=== PATIENT | male | born 1990 | race American Indian/Alaskan Native ===

== ENCOUNTER 2018-04-01 19:38 | Emergency (ER) | payer SELFPAY ==
[2018-04-01 20:30] LABS: Basophils % (Auto) 0.5 % (0.0-1.8); Eosinophils % (Auto) 0.7 % (0.0-4.3); Hematocrit 53.4 % (35.5-45.6); Hemoglobin 18.7 gm/dl (11.8-15.2); Lymphocytes # (Auto) 1.8 K/mm3 (1.2-5.4); Lymphocytes % (Auto) 32.2 % (13.4-35.0); Mean Corpuscular HGB Conc 35 % (32-34); Mean Corpuscular Hemoglobin 29 pg (28-32); Mean Corpuscular Volume 82 fl (84-94); Monocytes # (Auto) 0.7 K/mm3 (0.0-0.8); Monocytes % (Auto) 12.9 % (0.0-7.3); Platelet Count 215 K/mm3 (140-440); Red Blood Count 6.52 M/mm3 (3.65-5.03); Red Cell Distribution Width 12.7 % (13.2-15.2)
[2018-04-01 20:42] LABS: BUN/Creatinine Ratio 10; Blood Urea Nitrogen 13 mg/dL (9-20); Calcium 10.1 mg/dL (8.4-10.2); Hemolysis Index 8
[2018-04-02] MEDS ORDERED: NACL 0.9% 1000 ML 1,000 ML IV ONE ×2 (03:05→06:04)
[2018-04-02] MEDS ORDERED: ZOFRAN IV ONE (03:05)
--- NOTE | 2018-04-02 03:08 | Emergency Department Report ---
HPI - General Chief Complaint: Chest Pain Time Seen by Provider: 04/02/18 03:02 - HPI HPI: 27-year-old [place] male presents to the emergency department with complaint of a 4 day history of nausea and vomiting that has caused some abdominal discomfort and some occasional chest pain. The chest mostly hurts when he burps or has been vomiting, but currently at rest he has no chest pain. He denies any past medical history. He has not taken anything for her symptoms or presentation. No recent travel or sick contacts at home. He denies any shortness of breath, fever, back pain. ED Past Medical Hx - Past Medical History Previous Medical History?: No - Surgical History Past Surgical History?: No - Social History Smoking Status: Current Every Day Smoker Substance Use Type: None - Medications Home Medications: Home Medications Medication Instructions Recorded Confirmed Last Taken Type Ondansetron [Zofran Odt] 4 mg PO Q8H PRN #10 tab.rapdis 04/02/18 Unknown Rx ED Review of Systems ROS: Stated complaint: CHEST PAIN,VOMITING Other details as noted in HPI Comment: All other systems reviewed and negative Constitutional: denies: chills, fever Eyes: denies: eye pain, eye discharge, vision change ENT: denies: ear pain, throat pain Respiratory: denies: cough, shortness of breath, wheezing Cardiovascular: chest pain. denies: palpitations Gastrointestinal: abdominal pain, nausea, vomiting Genitourinary: denies: urgency, dysuria Musculoskeletal: denies: back pain, joint swelling, arthralgia Skin: denies: rash, lesions Neurological: denies: headache, weakness, paresthesias Physical Exam - Physical Exam Vital Signs: Vital Signs 04/01/18 04/01/18 20:01 20:15 Temperature 98.7 F 98.7 F Pulse Rate 116 H 113 H Respiratory 18 17 Rate Blood Pressure 131/92 131/92 O2 Sat by Pulse 100 100 Oximetry Physical Exam: GENERAL: The patient is well-developed well-nourished. HENT: Normocephalic. Atraumatic. Patient has moist mucous membranes. EYES: Extraocular motions are intact. Pupils equal reactive to light bilaterally. NECK: Supple. Trachea is midline. CHEST/LUNGS: Clear to auscultation. There is no respiratory distress noted. HEART/CARDIOVASCULAR: Regular. There is mild tachycardia. There is no murmur. ABDOMEN: Abdomen is soft. Mild generalized tenderness to palpation of the abdomen. No guarding. Patient has normal bowel sounds. There is no abdominal distention. SKIN: Skin is warm and dry. NEURO: The patient is awake, alert, and oriented. The patient is cooperative. The patient has no focal neurologic deficits. The patient has normal speech. MUSCULOSKELETAL: There is no tenderness or deformity. There is no limitation range of motion. There is no evidence of acute injury. ED Course Vital Signs 04/01/18 04/01/18 20:01 20:15 Temperature 98.7 F 98.7 F Pulse Rate 116 H 113 H Respiratory 18 17 Rate Blood Pressure 131/92 131/92 O2 Sat by Pulse 100 100 Oximetry ED Medical Decision Making - Lab Data Result diagrams: 04/01/18 20:23 04/01/18 20:23 - Radiology Data Radiology results: image reviewed interpreted by me: Chest x-ray does not show any acute process. There are no pleural effusions, obvious pneumonia and there is no pneumothorax. Abdominal x-ray shows nonspecific nonobstructive bowel gas Critical care attestation.: If time is entered above; I have spent that time in minutes in the direct care of this critically ill patient, excluding procedure time. ED Disposition Clinical Impression: Dehydration, Hypokalemia Nausea & vomiting Qualifiers: Vomiting type: unspecified Vomiting Intractability: non-intractable Qualified Code(s): R11.2 - Nausea with vomiting, unspecified Abdominal pain Qualifiers: Abdominal location: generalized Qualified Code(s): R10.84 - Generalized abdominal pain Disposition: - TO HOME OR SELFCARE Is pt being admited?: No Condition: Stable Instructions: Abdominal Pain (ED), Acute Nausea and Vomiting (ED), Hypokalemia (ED), Dehydration (ED) Additional Instructions: These follow-up with a primary care physician. I've given you some information regarding low potassium I recommend you look up potassium rich foods to supplement your potassium. Increase your fluid intake. Return to the emergency Department with any worsening of your symptoms or any acute distress. I have given him a referral for a local college or [employer] business manager, Dr. Serrato, to follow up regarding her abdominal pain. Prescriptions: Ondansetron [Zofran Odt] 4 mg PO Q8H PRN #10 tab.rapdis PRN Reason: Nausea Referrals: PRIMARY CARE, [Primary Care Provider] - 3-5 Days [facility] [Outside] - 3-5 Days BRENNAN SERRATO MD [Staff Physician] - 3-5 Days Time of Disposition: 06:04
--- NOTE | 2018-04-02 03:48 | XRay Report ---
FINAL REPORT EXAM: XR ABD SERIES W CXR 1V HISTORY: Abdominal pain, CP, vomiting. TECHNIQUE: Frontal and lateral radiographs of the chest and supine and erect frontal radiographs of the abdomen were obtained. No prior studies are available for comparison. FINDINGS: The cardiac silhouette and mediastinum are within normal limits. The lungs are clear bilaterally, without focal infiltrate or effusion. There is no pneumothorax. There is a nonspecific bowel gas pattern, with relative paucity of air seen throughout the small bowel and colon. There is no abnormal bowel dilatation to suggest intestinal obstruction. No free air or air-fluid levels are seen on the erect film. There is mild residual stool in the right colon and rectum. No abnormal soft tissue calcifications are seen. No significant osseous abnormalities are identified. IMPRESSION: 1. No intestinal obstruction or free air. 2. No active disease seen in the chest.
[2018-04-02 03:49] LABS: Bilirubin,Direct 0.3 mg/dL (0-0.2)
[2018-04-02] MEDS: KCL 10MEQ/100ML 10 MEQ/100 ML BAG IV SCH ×2 (04:11→05:16)
[2018-04-02 04:35] LABS: Albumin 4.7 g/dL (3.9-5)
[2018-04-02] MEDS ORDERED: K-DUR PO ONE (04:40)
[2018-04-02 08:31] VITALS: BP 121/81
[2018-04-02 08:32] LABS: Bilirubin,Urine NEG (Negative); Blood,Urine SM (Negative); Color,Urine Amber (Yellow); Mucus,Urine 3+ /HPF; White Blood Cell Casts,Urine 12 /LPF
== END 2018-04-02 08:39 | disposition home or self-care (01) ==
LOC: ED 19:38
DX: E86.0 Dehydration (principal); E87.6 Hypokalemia; R10.84 Generalized abdominal pain; R11.2 Nausea with vomiting, unspecified; F17.200 Nicotine dependence, unspecified, uncomplicated
CPT/HCPCS: 36415; 74022; 80048; 80074; 81001; 83690; 84484; 85025; 93005; 93010; 96361; 96365; 96375; 99284; J2405; J3480; J7030